=== PATIENT | female | born 1990 | race Caucasian/White ===

== ENCOUNTER 2018-02-06 12:50 | Outpatient (CLI) | payer OTHER ==
[~2018-02-06 12:50] MED LIST: CIPRO750 MG PO; Colace 100MG PO; DIAZEPAM10 MG PO; METHYLPRED4 MG/DOSE- PO; NEURONTIN PO; PERCOCET 5/3251 TAB PO; TRI-BUFFERED A325 M1 PO
== END 2018-02-06 12:59 | disposition home or self-care (01) ==
LOC: RAD 12:50
DX: M51.36 Other intervertebral disc degeneration, lumbar region (principal); Z98.1 Arthrodesis status

== ENCOUNTER 2018-09-26 10:24 | Emergency (ER) | payer OTHER ==
[~2018-09-26] VITALS: Ht 160 cm; Wt 55.8 kg
== END 2018-09-26 13:43 | disposition home or self-care (01) ==
LOC: ER 10:24
DX: B34.9 Viral infection, unspecified (principal)

== ENCOUNTER 2024-03-20 09:48 | Outpatient (CLI) | payer OTHER | END 2024-03-20 10:03 | disposition home or self-care (01) | LOC: RX STUDY 09:48 | PROVIDERS: ATTEND Obstetrics & Gynecology | DX: N97.9 Female infertility, unspecified (principal) ==